=== PATIENT | female | born 1985 | race African-American/Black ===

== ENCOUNTER 2024-02-05 21:16 | Emergency (ER) | payer BC ==
[~2024-02-05] VITALS: Ht 162.6 cm; Wt 72.7 kg
[2024-02-05 21:29] VITALS: TEMP 98.3
[2024-02-05] MEDS ORDERED: Glucagon 1 MG VIAL IV ONE (22:30)
[2024-02-05] MEDS ORDERED: LORazepam 2 MG/ML 1 ML VIAL IV ONE (22:30)
[2024-02-06] MEDS ORDERED: Ondansetron 4 MG/2 ML VIAL IV ONE (01:00)
[2024-02-06] MEDS ORDERED: Home Ondansetron ODT 4 MG #2 ODT/PACK PO ONE (01:15)
[2024-02-06 01:43] VITALS: BP 127/80; PULSE 68
== END 2024-02-06 01:46 | disposition home or self-care (01) ==
LOC: COL.ER 21:16
DX: K22.2 Esophageal obstruction (principal)
CPT/HCPCS: J1610; J2060; J2405